=== PATIENT | female | born 1985 | race Caucasian/White ===

== ENCOUNTER 2016-07-10 05:29 | Inpatient (IN) | payer BC ==
[~2016-07-10] VITALS: Ht 157.5 cm; Wt 79.3 kg
[2016-07-10] VITALS (10 sets, daily range): BP systolic 98–119; BP diastolic 54–69
[~2016-07-10 05:29] MED LIST: DOCUSATE SODIU100 MG PO; ENDOCET 5-3251 EACH PO; IBUPROFEN800 MG PO; PRENATAL TABLE1 EAC3 PO
[2016-07-10] MEDS ORDERED: ENDOCET 5-3251 EACH PO (08:10)
[2016-07-10] MEDS ORDERED: IBUPROFEN800 MG PO (08:10)
[2016-07-11 03:00] VITALS: BP 88/51
[2016-07-11 07:40] LABS: EOSINOPHIL (%) 0.6 % (0-5); EOSINOPHIL COUNT 0.1 K/uL (0-0.3); HEMATOCRIT 28.6 % (36.0-46.0); IMMATURE GRANULOCYTE (%) 1.1 % (0.0-0.7); IMMATURE GRANULOCYTE COUNT 0.1 K/uL; INSTRUMENT ABS NEUTROPHIL CT 7.8 K/uL; MCH 23.6 PG (29.0-34.0); MCHC 30.1 G/DL (30.0-36.0); MCV 78.4 FL (83-99); MEAN PLAT.VOLUME 10.5 uM^3 (9.5-12.4); MONOCYTE (%) 9.2 % (3-12); MONOCYTE COUNT 1.1 K/uL (0-0.8); NEUTROPHIL (%) 64.3 % (45-76); NEUTROPHIL COUNT 7.8 K/uL (1.8-6.4); PLATELET COUNT 168 K/uL (156-360); RBC DIS.WIDTH-CV 15.2 % (11.8-14.6); RBC DIS.WIDTH-SD 43.2 % (39-53); WHITE BLOOD COUNT 12.1 K/uL (4.1-10.2)
[2016-07-11 07:43] LABS: RED BLOOD COUNT 3.65 M/uL (3.80-5.20)
[2016-07-11 15:31] VITALS: BP 96/54
[2016-07-11 22:49] VITALS: BP 100/58
[2016-07-11 22:59] VITALS: BP 109/60
[2016-07-12 03:00] VITALS: BP 103/56
== END 2016-07-12 16:29 | disposition home or self-care (01) | DRG 766 ==
LOC: 2WEST 05:29 → 2SOUTH 10:25 → 2WEST 07-12 16:29
PROVIDERS: Obstetrics & Gynecology
PROC: 10D00Z1 Extraction of Products of Conception, Low, Open Approach (ICD-10-PCS; principal; 2016-07-10)
DX: O34.211 Maternal care for low transverse scar from previous cesarean delivery (principal); D50.9 Iron deficiency anemia, unspecified; O90.81 Anemia of the puerperium; N85.8 Other specified noninflammatory disorders of uterus; Z37.0 Single live birth; Z3A.39 39 weeks gestation of pregnancy
CPT/HCPCS: 36415; 85025; 86900; 86901; J0690; J1100; J2274; J2405; J2765; J3010; J7120